=== PATIENT | male | born 1995 | race Caucasian/White ===

== ENCOUNTER 2017-01-25 06:33 | Emergency (ER) | payer OTHER ==
[2017-01-25 06:38] VITALS: TEMP 98.4
[2017-01-25] MEDS ORDERED: NS 1,000 ML IV ONE ×2 (06:54→07:36)
[2017-01-25] MEDS ORDERED: ONDANSETRON 4 MG/2 ML VIAL IVP ONE (06:54)
--- NOTE | 2017-01-25 07:12 | EDPHY ---
HPI/HX/ROS/PE/MDM Narrative: CHIEF COMPLAINT: "I've been throwing up since 8pm" HPI: The patient is a 21 y/o male arriving with his father complaining of persistent bilious vomiting since 20:00 yesterday, about 11 hours ago. He ate sushi around noon, but otherwise can't identify a precipitating factor. He developed diffuse cramping abdominal pain after several episodes of vomiting. He 's had three associated episodes of non-bloody loose stool. No fever, dyspnea, chest pain. He denies pertinent medical history and has no history of abdominal surgeries. REVIEW OF SYSTEMS: Aside from elements discussed in the HPI, a comprehensive 10-point review of systems was reviewed and is negative. PMH: Concussions, left hand surgeries SOCIAL HISTORY: Lives in [place]. Employed. Father at bedside PHYSICAL EXAM: General:Patient is alert, in no acute distress. ENT:Eyes are normal to inspection. ENT inspection normal. Neck: Normal inspection. Full range of motion. Respiratory:No respiratory distress. Breath sounds normal bilaterally. Cardiovascular: Regular rate and rhythm. Strong peripheral pulses. Normal cap refill. Abdomen:The abdomen has mild LUQ tenderness to palpation. There are no peritoneal signs. Back: Normal to inspection. No tenderness to palpation. Skin: Normal color. No rash. Warm and dry. Extremities: Normal appearance. Full range of motion. Neuro: Oriented x3. Normal motor function. Normal sensory function. ED Course: This is a healthy 21 y/o male who presents with an 11-hour history of vomiting with some associated loose stool and mild abdominal cramping. He has mild LUQ tenderness on exam. Plan for symptomatic management with 2L IV NS and 4mg IV Zofran. Reassessed patient. He feels improved and has not vomited while here. His abdomen is benign. He has been able to tolerate PO fluids without issue here. He feels ready to go home. He will receive a script for Zofran and recommendation to follow up with his PCP for unimproved symptoms over the next few days. Return precautions discussed. MDM: I discussed options for further testing with the patient, including lab work and CT imaging. He declines this and would like to go home. Given lack of abdominal pain/tenderness and history suggestive of gastroenteritis, I have low suspicion for appendicitis, cholecystitis, bowel perforation or obstruction, or renal stone. - Data Points Medications Given: Discontinued Medications Sodium Chloride (Ns) 1,000 mls @ 0 mls/hr IV EDNOW ONE; Wide Open PRN Reason: Protocol Stop: 01/25/17 06:55 Last Admin: 01/25/17 07:07 Dose: 1,000 mls Sodium Chloride (Ns) 1,000 mls @ 0 mls/hr IV ONCE ONE PRN Reason: Wide Open Stop: 01/25/17 07:37 Last Admin: 01/25/17 07:45 Dose: 1,000 mls Ondansetron HCl (Zofran) 4 mg IVP EDNOW ONE Stop: 01/25/17 06:55 Last Admin: 01/25/17 07:08 Dose: 4 mg General Time Seen by Provider: 01/25/17 06:59 Initial Vital Signs: Initial Vital Signs Temperature (C) 36.9 C 01/25/17 06:35 Heart Rate 88 01/25/17 06:35 Respiratory Rate 18 01/25/17 06:35 Blood Pressure 135/87 H 01/25/17 06:35 O2 Sat (%) 98 01/25/17 06:35 O2 Delivery Mode Room Air Allergies/Adverse Reactions: soy Allergy (Verified 01/25/17 06:38) Home Medications: Medication Instructions Recorded Ondansetron Odt [Zofran Odt] 4 mg PO Q4PRN PRN #10 tab 01/25/17 Departure - Departure Disposition: Home, Routine, Self-Care Clinical Impression: Nausea & vomiting Condition: Good Instructions: Ondansetron (By mouth), Acute Nausea and Vomiting (ED) Additional Instructions: 1. Take Zofran as prescribed as needed for nausea and vomiting. 2. Increase fluid intake. 3. Follow up with your primary care provider for unimproved symptoms over the next few days. 4. Return to the ED for severe pain, inability to keep fluid down, uncontrollable fever, or other worsening of condition. Referrals: JOAN CROWLEY [Primary Care Provider] - As per Instructions Stand Alone Forms: Work Excuse Prescriptions: Ondansetron Odt [Zofran Odt] 4 mg PO Q4PRN PRN #10 tab PRN Reason: Nausea Report Scribed for: Torrey Lawson Report Scribed by: Vangie Maddox Date of Report: 01/25/17 Time of Report: 08:01 Physician Review and Approval Statement: Portions of this note were transcribed by an ED scribe. I personally performed the history, physical exam, and medical decision making; and confirm the accuracy of the information in the transcribed note.
[2017-01-25 09:07] VITALS: BP 113/71; PULSE 56; RESP 16; O2SAT 95
== END 2017-01-25 09:07 | disposition home or self-care (01) ==
DX: R11.2 Nausea with vomiting, unspecified (principal); E86.9 Volume depletion, unspecified
CPT/HCPCS: 96374; J2405